=== PATIENT | female | born 1985 | race Caucasian/White ===

== ENCOUNTER 2016-02-09 11:04 | Emergency (ER) | payer MEDICAID, OTHER ==
[~2016-02-09] VITALS: Ht 165.1 cm; Wt 96.6 kg
[2016-02-09 11:50] VITALS: BP 130/77
[2016-02-09] MEDS ORDERED: KETOROLAC TROMETH 60MG/2ML VIAL IM ONE (12:15)
[2016-02-09] MEDS ORDERED: LIDOCAINE 1% HCL (LOCAL ANESTH.) INJ 20ML MDV ONE (12:15)
[2016-02-09] MEDS ORDERED: cefTRIAXone SOD 1,000 MG VL IM ONE (12:15)
== END 2016-02-09 12:49 | disposition home or self-care (01) ==
LOC: ER 11:09
DX: L03.211 Cellulitis of face (principal); Z98.890 Other specified postprocedural states
CPT/HCPCS: 96372; 99283; J0696; J1885; J2001